=== PATIENT | female | born 1990 | race Caucasian/White ===

== ENCOUNTER 2016-12-03 16:15 | Emergency (ER) | payer OTHER ==
[~2016-12-03 16:15] MED LIST: FEOSOL325 MG PO
== END 2016-12-03 18:02 | disposition home or self-care (01) ==
LOC: ER1 16:15
DX: J02.9 Acute pharyngitis, unspecified (principal); F17.210 Nicotine dependence, cigarettes, uncomplicated
CPT/HCPCS: 87081; 87880; 99283

== ENCOUNTER 2021-03-16 16:28 | Inpatient (IN) | payer OTHER ==
[~2021-03-16] VITALS: Ht 167.6 cm; Wt 95.7 kg
[~2021-03-16 16:28] MED LIST changes: +LEVAQUIN750 MG PO; +LEXAPRO20 MG PO
[2021-03-16 17:10] LABS: HEMOGLOBIN 12.8 gm/dl (12.3-15.3); RED BLOOD COUNT 4.11 M/UL (4.00-5.10); WHITE BLOOD COUNT 11.1 K/UL (4.5-11.0)
[2021-03-16] MEDS ORDERED: COLACE 100MG C100 MG PO (18:24)
[2021-03-16] MEDS ORDERED: ZYRTEC10 MG PO (18:24)
[2021-03-17] MEDS ORDERED: PRENATAL VITAM1 EAC5 PO (18:28)
[2021-03-18 06:14] LABS: HEMOGLOBIN 12.4 gm/dl (12.3-15.3)
[2021-03-18] MEDS ORDERED: PERCOCET 5/325 T1 EA PO (12:35)
[2021-03-18] MEDS ORDERED: IBUPROFEN800 MG PO (12:35)
[2021-03-18] MEDS ORDERED: SOF-LAX100 MG PO (12:35)
== END 2021-03-18 16:45 | disposition home or self-care (01) | DRG 807 ==
LOC: GENOP 16:28 → OB 16:48
PROVIDERS: ADMIT Obstetrics & Gynecology
PROC: 10E0XZZ Delivery of Products of Conception, External Approach (ICD-10-PCS; principal; 2021-03-16)
PROC: 10907ZC Drainage of Amniotic Fluid, Therapeutic from Products of Conception, Via Natural or Artificial Opening (ICD-10-PCS; 2021-03-16)
PROC: 3E033VJ Introduction of Other Hormone into Peripheral Vein, Percutaneous Approach (ICD-10-PCS; 2021-03-16)
DX: O41.03X0 Oligohydramnios, third trimester, not applicable or unspecified (principal); Z37.0 Single live birth; O99.344 Other mental disorders complicating childbirth; F32.9 Major depressive disorder, single episode, unspecified; Z3A.37 37 weeks gestation of pregnancy; Z88.8 Allergy status to other drugs, medicaments and biological substances; Z82.49 Family history of ischemic heart disease and other diseases of the circulatory system; Z83.3 Family history of diabetes mellitus
CPT/HCPCS: 36415; 51702; 81001; 85014; 85018; 85025; 90715; J0696; J2210; J2590; J2795; J3010; U0002